=== PATIENT | female | born 1975 | race Native Hawaiian/Other Pacific Islander ===

== ENCOUNTER 2017-12-26 01:55 | Emergency (ER) | payer SELFPAY ==
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
[2017-12-26 03:05] VITALS: BMI 24.1
[2017-12-26 04:07] VITALS: TEMP 97.5
== END 2017-12-26 04:18 ==
LOC: ED 01:55
DX: I46.9 Cardiac arrest, cause unspecified (principal)